=== PATIENT | female | born 1960 | race Hispanic/Latino ===

== ENCOUNTER 2017-06-16 10:51 | Emergency (ER) | payer SELFPAY ==
[~2017-06-16] VITALS: Ht 154.9 cm; Wt 99.8 kg
== END 2017-06-16 12:00 | disposition home or self-care (01) ==
LOC: FSED 10:51
DX: M54.6 Pain in thoracic spine (principal); M54.5 Low back pain; M62.830 Muscle spasm of back; Y93.89 Activity, other specified; I10 Essential (primary) hypertension
CPT/HCPCS: 99282